=== PATIENT | female | born 1965 | race Caucasian/White ===

== ENCOUNTER 2024-05-21 14:20 | Outpatient (CLI) | payer OTHER, SELFPAY ==
--- NOTE | ~2024-05-21 | CT_ITS ---
EXAMINATION: CT abdomen pelvis w con DATE: 05/21/2024 14:53 INDICATION: Unspecified abdominal pain TECHNIQUE: Computed tomography (CT) of the abdomen and pelvis was performed with 100 mL Omnipaque-350 intravenous contrast. Automated exposure control and iterative reconstruction technique were employe d. The dose-length product was 975.32 mGy-cm. COMPARISON: 08/20/2019 FINDINGS: Lung bases are clear. Heart size is normal. No pericardial or pleural effusion. Liver, gallbladder, s pleen, pancreas, bilateral adrenal glands and right kidney are normal. Couple small left renal cysts measuring up to 7 mm. There is moderate colonic diverticulosis with a sigmoid predominance. There is mild inflammatory stranding surrounding couple diverticula at the mid descending colon and proximal s igmoid colon consistent with diverticulitis. No abscess or free intraperineal gas or fluid. Small bow el and appendix are normal. Bladder, uterus and bilateral adnexa are unremarkable. No pathologically enlarged abdominal or pelvic lymphadenopathy. Severe spondylosis lumbosacral junction with mild spond ylosis more cephalad lumbar and lower thoracic spine. IMPRESSION: 1. Radiographically uncomplicated diverticulitis at a couple locations along the mid descending and p roximal sigmoid colon. Reviewed, dictated and finalized at location A. IMPRESSION: 1. Radiographically uncomplicated diverticulitis at a couple locations along th e mid descending and proximal sigmoid colon.
== END 2024-05-21 14:21 ==
LOC: MICIMG 14:22
PROVIDERS: PCP Physician Assistant Medical; Visit Provider Physician Assistant Medical
DX: R10.9 Unspecified abdominal pain (principal)
CPT/HCPCS: 74177; Q9967